=== PATIENT | female | born 2000 | race Caucasian/White ===

== ENCOUNTER 2022-01-16 13:12 | Outpatient (CLI) | payer BC, SELFPAY ==
[2022-01-16 16:56] LABS: Hepatitis B Surface Antigen* Negative (Negative)
[2022-01-16 17:04] LABS: HIV 1/2/P24 Combo Screen* Negative (Negative)
[2022-01-16 17:13] LABS: Hepatitis C Virus Antibody* Negative (Negative)
[2022-01-16 18:55] LABS: Chlamydia DNA Amplified* NOT DETECTED (No Detected); GC DNA Amplified* NOT DETECTED (No Detected)
[2022-01-18 20:26] LABS: Rapid Plasma Reagin (RPR) Non Reactive (Non Reactive)
== END 2022-01-16 13:13 | disposition home or self-care (01) ==
PROVIDERS: PCP Physician Assistant Medical; Visit Provider Obstetrics & Gynecology
DX: Z01.419 Encounter for gynecological examination (general) (routine) without abnormal findings (principal); Z11.3 Encounter for screening for infections with a predominantly sexual mode of transmission
CPT/HCPCS: 86592; 86703; 86803; 87340; 87491; 87591

== ENCOUNTER 2022-05-02 14:37 | Outpatient (CLI) | payer BC, SELFPAY ==
[2022-05-02 18:37] LABS: Hepatitis B Surface Antigen* Negative (Negative)
[2022-05-02 18:50] LABS: HIV 1/2/P24 Combo Screen* Negative (Negative)
[2022-05-02 18:54] LABS: Hepatitis C Virus Antibody* Negative (Negative)
[2022-05-02 19:38] LABS: Chlamydia DNA Amplified* NOT DETECTED (No Detected); GC DNA Amplified* NOT DETECTED (No Detected)
[2022-05-04 18:37] LABS: Rapid Plasma Reagin (RPR) Non Reactive (Non Reactive)
== END 2022-05-02 14:38 | disposition home or self-care (01) ==
PROVIDERS: PCP Physician Assistant Medical; Visit Provider Physician Assistant
DX: Z11.3 Encounter for screening for infections with a predominantly sexual mode of transmission (principal)
CPT/HCPCS: 86592; 86703; 86803; 87340; 87491; 87591

== ENCOUNTER 2023-02-09 09:45 | Outpatient (CLI) | payer OTHER, SELFPAY ==
[2023-02-09 16:04] LABS: GC DNA Amplified* NOT DETECTED (No Detected)
[2023-02-09 16:27] LABS: Chlamydia DNA Amplified* DETECTED (No Detected)
== END 2023-02-09 09:46 | disposition home or self-care (01) ==
PROVIDERS: PCP Physician Assistant Medical; Visit Provider Physician Assistant
DX: Z11.3 Encounter for screening for infections with a predominantly sexual mode of transmission (principal)
CPT/HCPCS: 80061; 86592; 86703; 86803; 87340; 87491; 87591

== ENCOUNTER 2023-03-17 10:32 | Outpatient (CLI) | payer OTHER, SELFPAY ==
--- NOTE | 2023-03-17 11:00 | CRLHL7_ITS ---
For Patients: As a result of the Century Cures Act, medical imaging exams and procedure reports are released immediately into your electronic medical record. You may view this report before your referring provider. If you have questions, please contact your health care provider. INDICATION: IUD, BREAK THROUGH BLEEDING COMPARISON: 05/03/2020 TECHNIQUE: 2D gupta scale and color Doppler images were acquired of the pelvis using a transabdominal and transvaginal approach. FINDINGS: Sonographic images demonstrate a normal size and smooth outer contour of the uterus. Uterus measures 9.6 cm in length by 2.2 cm in AP diameter by 5.3 cm in transverse dimension. The myometrium has a normal uniform echotexture. IUD is present in normal position within the endometrial canal. The right ovary measures 3.7 x 2.0 x 2.5 cm in size and the left ovary measures 5.0 x 2.8 x 3.1 cm. Benign left ovarian cyst measuring 3.1 x 2.4 x 2.7 cm, likely hemorrhagic. The ovaries demonstrate normal arterial and venous blood flow on color Doppler analysis. There are no suspicious fluid collections within the cul-de-sac. IMPRESSION: Normal position of the IUD within the endometrial canal. The endometrium is heterogeneous with a small amount of fluid present. The endometrial thickness is approximately 7 millimeters. Dictated by Carlos Payne MD @ 03/17/2023 12:02:26 PM (Electronically Signed)
== END 2023-03-17 10:33 | disposition home or self-care (01) ==
LOC: US 10:33
PROVIDERS: PCP Physician Assistant Medical; Visit Provider Physician Assistant
DX: N92.1 Excessive and frequent menstruation with irregular cycle (principal); R93.89 Abnormal findings on diagnostic imaging of other specified body structures; Z97.5 Presence of (intrauterine) contraceptive device; Z11.3 Encounter for screening for infections with a predominantly sexual mode of transmission
CPT/HCPCS: 76830; 76856; 87491; 87591

== ENCOUNTER 2023-09-29 08:33 | Outpatient (CLI) | payer OTHER, SELFPAY ==
[2023-09-29 13:28] LABS: Chlamydia DNA Amplified* NOT DETECTED (No Detected); GC DNA Amplified* NOT DETECTED (No Detected)
== END 2023-09-29 08:34 | disposition home or self-care (01) ==
PROVIDERS: PCP Physician Assistant Medical; Visit Provider Physician Assistant
DX: Z11.3 Encounter for screening for infections with a predominantly sexual mode of transmission (principal)
CPT/HCPCS: 86592; 86703; 86803; 87340; 87491; 87591

== ENCOUNTER 2023-12-01 08:40 | Outpatient (CLI) | payer OTHER, SELFPAY ==
[2023-12-01 12:16] LABS: Chlamydia DNA Amplified* NOT DETECTED (No Detected); GC DNA Amplified* NOT DETECTED (No Detected)
== END 2023-12-01 08:41 | disposition home or self-care (01) ==
PROVIDERS: PCP Physician Assistant Medical; Visit Provider Physician Assistant
DX: R35.0 Frequency of micturition (principal); Z11.3 Encounter for screening for infections with a predominantly sexual mode of transmission
CPT/HCPCS: 86592; 86703; 86803; 87086; 87340; 87491; 87591

== ENCOUNTER 2024-02-17 08:39 | Outpatient (CLI) | payer OTHER, SELFPAY ==
[2024-02-17 15:10] LABS: Chlamydia DNA Amplified* NOT DETECTED (No Detected); GC DNA Amplified* NOT DETECTED (No Detected)
== END 2024-02-17 08:40 | disposition home or self-care (01) ==
PROVIDERS: PCP Physician Assistant Medical; Visit Provider Obstetrics & Gynecology
DX: Z11.3 Encounter for screening for infections with a predominantly sexual mode of transmission (principal); Z13.6 Encounter for screening for cardiovascular disorders; Z13.1 Encounter for screening for diabetes mellitus
CPT/HCPCS: 80061; 82947; 86592; 86703; 86706; 86803; 87340; 87491; 87591

== ENCOUNTER 2024-09-30 08:55 | Outpatient (CLI) | payer OTHER, SELFPAY ==
[2024-09-30 14:18] LABS: Chlamydia DNA Amplified* NOT DETECTED (No Detected); GC DNA Amplified* NOT DETECTED (No Detected)
== END 2024-09-30 08:56 | disposition home or self-care (01) ==
PROVIDERS: PCP Physician Assistant Medical; Visit Provider Physician Assistant
DX: Z11.3 Encounter for screening for infections with a predominantly sexual mode of transmission (principal); Z11.4 Encounter for screening for human immunodeficiency virus [HIV]; Z11.51 Encounter for screening for human papillomavirus (HPV)
CPT/HCPCS: 86592; 86703; 86803; 87340; 87491; 87591